=== PATIENT | male | born 1945 | race Caucasian/White ===

== ENCOUNTER 2019-06-27 12:16 | Emergency (ER) | payer MEDICARE ==
[~2019-06-27] VITALS: Ht 165 cm; Wt 72.0 kg
[2019-06-27] MEDS ORDERED: ONDANSETRON 4 MG/2 ML (SDV) Z0FRAN IVP ONE (12:45)
[2019-06-27] MEDS ORDERED: NS IV 1000 ML 1,000 ML IV SCH (12:45)
--- NOTE | 2019-06-27 12:53 | ED Abdominal Pain ---
General Chief Complaint: Abdominal/GI Problems Stated Complaint: VOMITING Source of Information: Patient History of Present Illness Date Seen by Provider: Jun 27, 2019 Time Seen by Provider: 12:40 Initial Comments Patient is a 74-year-old male presents with intermittent epigastric pain with nausea and vomiting for the past oriented hours. Reports vomiting throughout last evening. No chest pain, shortness of breath. No flank pain, no fever chills or sweats. Reports chronic constipation. Last bowel movement was 5 days ago. Previous appendectomy. Timing/Duration: 4-5 Days Severity/Quality: Moderate Location: Epigastric Radiation: No Radiation Activities at Onset: None Allergies and Home Medications Allergies Coded Allergies: No Known Drug Allergies (Unverified , 05/21/11) Patient Home Medication List Home Medication List Reviewed: Yes Review of Systems Review of Systems Constitutional: see HPI EENTM: See HPI Respiratory: See HPI Cardiovascular: See HPI Gastrointestinal: See HPI Genitourinary: See HPI Musculoskeletal: see HPI Skin: see HPI Psychiatric/Neurological: See HPI Endocrine: See HPI Hematologic/Lymphatic: See HPI Past Angqhzd-Wzaqam-Ompgow Hx Past Med/Social Hx: Reviewed Nursing Past Med/Soc Hx Patient Social History Alcohol Use: Denies Use Recreational Drug Use: No Smoking Status: Never a Smoker 2nd Hand Smoke Exposure: No Recent Hopitalizations: No Physical Abuse: No Sexual Abuse: No Mistreated: No Fear: No Seasonal Allergies Seasonal Allergies: No Past Medical History Surgeries: Yes (lymphectomy; R testicle removal ) Appendectomy, Testicular Respiratory: No Cardiac: Yes (aortic aneurysm ) Aneurysm, Hypertension Neurological: Yes TIA Genitourinary: Yes Kidney Stones Gastrointestinal: Yes (hyperbilirubinema) Gastroesophageal Reflux, Brown's Esophagus, Hiatal Hernia, Irritable Bowel Musculoskeletal: Yes (spinal stenosis ) Endocrine: Yes Hypothyroidsim Cancer: Yes Testicular What Type of Treatment Did You: Radiation, Surgical Intervention Psychosocial: Yes Depression Integumentary: No Physical Exam Vital Signs Vital Signs - First Documented 06/27/19 12:25 Temp 36.8 Pulse 70 Resp 18 B/P (MAP) 155/89 (111) Pulse Ox 94 Capillary Refill : Height/Weight/BMI Height: '" Weight: lbs. oz. kg; BMI Method: General Appearance: WD/WN, no apparent distress HEENT: PERRL/EOMI, normal ENT inspection, TMs normal Neck: non-tender, supple Respiratory: chest non-tender, lungs clear Cardiovascular: normal peripheral pulses, regular rate, rhythm Gastrointestinal: soft Extremities: normal range of motion, normal inspection, no pedal edema Back: normal inspection Neurologic/Psychiatric: early childhood coordinator II-XII nml as tested, no motor/sensory deficits, normal mood/affect, oriented x 3 Progress/Results/Core Measures Results/Orders Lab Results Laboratory Tests Test 06/27/19 12:50 06/27/19 14:10 Range/Units White Blood Count 9.2 4.3-11.0 10^3/uL Red Blood Count 4.87 4.35-5.85 10^6/uL Hemoglobin 15.1 13.3-17.7 G/DL Hematocrit 45 40-54 % Mean Corpuscular Volume 92 80-99 FL Mean Corpuscular Hemoglobin 31 25-34 PG Mean Corpuscular Hemoglobin Concent 34 32-36 G/DL Red Cell Distribution Width 13.1 10.0-14.5 % Platelet Count 155 130-400 10^3/uL Mean Platelet Volume 10.3 7.4-10.4 FL Neutrophils (%) (Auto) 89 H 42-75 % Lymphocytes (%) (Auto) 4 L 12-44 % Monocytes (%) (Auto) 7 0-12 % Eosinophils (%) (Auto) 0 0-10 % Basophils (%) (Auto) 0 0-10 % Neutrophils # (Auto) 8.2 H 1.8-7.8 X 10^3 Lymphocytes # (Auto) 0.3 L 1.0-4.0 X 10^3 Monocytes # (Auto) 0.7 0.0-1.0 X 10^3 Eosinophils # (Auto) 0.0 0.0-0.3 10^3/uL Basophils # (Auto) 0.0 0.0-0.1 10^3/uL Neutrophils % (Manual) 85 % Lymphocytes % (Manual) 6 % Monocytes % (Manual) 5 % Eosinophils % (Manual) 0 % Basophils % (Manual) 0 % Band Neutrophils 4 % Blood Morphology Comment NORMAL Sodium Level 138 135-145 MMOL/L Potassium Level 4.2 3.6-5.0 MMOL/L Chloride Level 99 98-107 MMOL/L Carbon Dioxide Level 28 21-32 MMOL/L Anion Gap 11 5-14 MMOL/L Blood Urea Nitrogen 29 H 7-18 MG/DL Creatinine 1.40 H 0.60-1.30 MG/DL Estimat Glomerular Filtration Rate 50 BUN/Creatinine Ratio 21 Glucose Level 139 H 70-105 MG/DL Calcium Level 10.3 H 8.5-10.1 MG/DL Corrected Calcium 8.5-10.1 MG/DL Total Bilirubin 3.2 H 0.1-1.0 MG/DL Aspartate Amino Transf (AST/SGOT) 26 5-34 U/L Alanine Aminotransferase (ALT/SGPT) 20 0-55 U/L Alkaline Phosphatase 53 40-136 U/L Troponin I < 0.30 <0.30 NG/ML Total Protein 7.2 6.4-8.2 GM/DL Albumin 4.6 H 3.2-4.5 GM/DL Lipase 23 8-78 U/L Urine Color YELLOW Urine Clarity CLEAR Urine pH 6.0 5-9 Urine Specific Melber 1.020 1.016-1.022 Urine Protein TRACE NEGATIVE Urine Glucose (UA) NEGATIVE NEGATIVE Urine Ketones NEGATIVE NEGATIVE Urine Nitrite NEGATIVE NEGATIVE Urine Bilirubin NEGATIVE NEGATIVE Urine Urobilinogen 0.2 NORMAL MG/DL Urine Leukocyte Esterase NEGATIVE NEGATIVE Urine RBC (Auto) NEGATIVE NEGATIVE Urine RBC NONE /HPF Urine WBC RARE /HPF Urine Squamous Epithelial Cells RARE /HPF Urine Crystals PRESENT H /LPF Urine Calcium Oxalate Crystals FEW H /LPF Urine Bacteria NONE /HPF Urine Casts NONE /LPF Urine Mucus SMALL H /LPF Urine Culture Indicated NO My Orders Orders - DIRK CA DO Cbc With Automated Diff (06/27/19 12:36) Comprehensive Metabolic Panel (06/27/19 12:36) Lipase (06/27/19 12:36) Ua Culture If Indicated (06/27/19 12:36) Ns Iv 1000 Ml (Sodium Chloride 0.9%) (06/27/19 12:45) Ondansetron Injection (Zofran Injectio (06/27/19 12:45) Ct Abdomen/Pelvis W (06/27/19 12:36) Troponin I Fs (06/27/19 12:36) Ekg Tracing (06/27/19 12:36) Manual Differential (06/27/19 12:50) Iohexol Injection (Omnipaque 350 Mg/Ml 1 (06/27/19 14:00) Received Contrast (Hold Metformin- Contr (06/27/19 14:00) Sodium Chloride Flush (Catheter Flush Sy (06/27/19 14:00) Ns (Ivpb) (Sodium Chloride 0.9% Ivpb Bag (06/27/19 14:00) Fentanyl Injection (Sublimaze Injection (06/27/19 15:00) Ng Tube Insert & Assessment (06/27/19 14:48) Medications Given in ED Current Medications Medications Dose Ordered Sig/Triny Route Start Time Stop Time Status Last Admin Dose Admin Iohexol 100 ml ONCE ONCE IV 06/27/19 14:00 06/27/19 14:01 DC 06/27/19 14:12 100 ML Ondansetron HCl 4 mg ONCE ONCE IVP 06/27/19 12:45 06/27/19 12:46 DC 06/27/19 12:59 4 MG Sodium Chloride 10 ml NEEDED PRN IV 06/27/19 14:00 06/27/19 14:12 10 ML Sodium Chloride 100 ml ONCE ONCE IV 06/27/19 14:00 06/27/19 14:01 DC 06/27/19 14:12 80 ML Vital Signs/I&O 06/27/19 12:25 Temp 36.8 Pulse 70 Resp 18 B/P (MAP) 155/89 (111) Pulse Ox 94 Departure Communication (Admissions) No vomiting while in the emergency department. Abdomen soft, all distention, nontender. CT abdomen and pelvis reveals partial small bowel obstruction with transition zone in right lower quadrant. NG tube placed and connected to wall suction Patient requests transfer to [facility]. Patient accepted to [facility] in [place] by Dr. Agnes ramírez. Impression Primary Impression: Small bowel obstruction Disposition: XFER SHT-TRM HOSP Condition: Stable Admissions Time/Decision to Admit Time: 15:02 Transfer Method of Transfer: EMS Departure-Patient Inst. Referrals: LATASHA WOODALL (PCP) Primary Care Physician [facility] (Family) Primary Care Physician DIRK CA DO Jun 27, 2019 12:53
[2019-06-27 13:05] LABS: HEMATOCRIT 45 % (40-54); HEMOGLOBIN 15.1 G/DL (13.3-17.7); MEAN CORPUSCULAR HEMOGLOBIN 31 PG (25-34); MEAN CORPUSCULAR HGB CONC 34 G/DL (32-36); MEAN CORPUSCULAR VOLUME 92 FL (80-99); MEAN PLATELET VOLUME 10.3 FL (7.4-10.4); PLATELET COUNT 155 10^3/uL (130-400); RED CELL DISTRIBUTION WIDTH 13.1 % (10.0-14.5); WHITE BLOOD COUNT 9.2 10^3/uL (4.3-11.0)
[2019-06-27 13:06] LABS: BASOPHILS % (AUTO) 0 % (0-10); EOSINOPHILS % (AUTO) 0 % (0-10); LYMPHOCYTES # (AUTO) 0.3 X 10^3 (1.0-4.0); LYMPHOCYTES % (AUTO) 4 % (12-44); MONOCYTES # (AUTO) 0.7 X 10^3 (0.0-1.0); MONOCYTES % (AUTO) 7 % (0-12); NEUTROPHILS # (AUTO) 8.2 X 10^3 (1.8-7.8); NEUTROPHILS % (AUTO) 89 % (42-75)
[2019-06-27 13:20] LABS: ALANINE AMINOTRANSFERASE 20 U/L (0-55); ALBUMIN 4.6 GM/DL (3.2-4.5); ALKALINE PHOSPHATASE 53 U/L (40-136); BILIRUBIN,TOTAL 3.2 MG/DL (0.1-1.0); BUN/CREATININE RATIO 21; CALCIUM 10.3 MG/DL (8.5-10.1); CARBON DIOXIDE 28 MMOL/L (21-32); CHLORIDE 99 MMOL/L (98-107); GFR ESTIMATED 50; GLUCOSE 139 MG/DL (70-105); POTASSIUM 4.2 MMOL/L (3.6-5.0); SODIUM 138 MMOL/L (135-145); TOTAL PROTEIN 7.2 GM/DL (6.4-8.2)
[2019-06-27 13:21] LABS: LIPASE 23 U/L (8-78)
[2019-06-27 13:42] LABS: BAND NEUTROPHILS 4 %; BASOPHILS % (MANUAL) 0 %; EOSINOPHILS % (MANUAL) 0 %; LYMPHOCYTES % (MANUAL) 6 %; MONOCYTES % (MANUAL) 5 %; NEUTROPHILS % (MANUAL) 85 %; RBC MORPH NORMAL
[2019-06-27] MEDS ORDERED: IOHEXOL 350 MG/ML 100 ML (OMNIPAQUE 350) VIAL IV ONE (14:00)
[2019-06-27] MEDS ORDERED: HOLD METFORMIN - RECEIVED CONTRAST 20 ML VIAL IV SCH (14:00)
[2019-06-27] MEDS ORDERED: CATHETER FLUSH 10 ML SYR IV PRN (14:00)
[2019-06-27] MEDS ORDERED: NS 100 ML (IVPB) BAG IV ONE (14:00)
[2019-06-27 14:22] LABS: BILIRUBIN,URINE NEGATIVE (NEGATIVE); CALCIUM OXALATE CRYSTALS,UR FEW /LPF; CLARITY,URINE CLEAR; COLOR,URINE YELLOW; GLUCOSE, URINE (UA) NEGATIVE (NEGATIVE); KETONES,URINE NEGATIVE (NEGATIVE); LEUKOCYTE ESTERASE ,URINE NEGATIVE (NEGATIVE); NITRITE,URINE NEGATIVE (NEGATIVE); PROTEIN,URINE TRACE (NEGATIVE); SQUAMOUS EPITHELIAL CELL,UR RARE /HPF; WBC,URINE RARE /HPF
--- NOTE | 2019-06-27 14:44 | Diagnostic Imaging Report ---
PROCEDURE: CT abdomen and pelvis with contrast. TECHNIQUE: Multiple contiguous axial images were obtained through the abdomen and pelvis after administration of intravenous contrast. Auto Exposure Controls were utilized during the CT exam to meet ALARA standards for radiation dose reduction. INDICATION: Vomiting after oral surgery. Abdominal pain. COMPARISON: None. FINDINGS: The heart is enlarged bibasilar opacities are present. A large hiatal hernia is seen. Distended fluid-filled loops of small bowel are seen throughout the abdomen. There is also distention of the stomach and distal esophagus with ingested contents. A transition point is visualized in the right lower quadrant (image 49 series 2). Trace free fluid is seen in the abdomen. No evidence of free air. Multiple nonobstructing renal calculi are seen bilaterally. Simple cortical cysts are seen bilaterally. No evidence of hydronephrosis. The bladder is moderately distended. There is generalized pancreatic atrophy. No pancreatic masses are seen. The liver, spleen, and adrenal glands have a normal appearance. There is no pathologically enlarged mesenteric or retroperitoneal adenopathy. Marked degenerative changes are seen in the lumbar spine. No acute fracture or dislocation is present. There is no free air, loculated collection, or adenopathy in the pelvis. IMPRESSION: 1. Findings consistent with small bowel obstruction with a transition point in the right lower quadrant. There is trace free fluid in the abdomen and pelvis without evidence of free air. 2. There is distention of the stomach and distal esophagus with ingested contents, concerning for aspiration risk. 3. Bilateral nonobstructing renal calculi. No evidence of hydronephrosis. Findings were discussed with Dr. Tej Barakat at 2:45 PM on 06/27/[address] Soren Smith. Dictated by: Dictated on workstation # [id number]
[2019-06-27] MEDS ORDERED: LIDOCAINE UROJET 2% GEL 10 ML PKG ONE (14:58)
[2019-06-27] MEDS ORDERED: fentaNYL INJECTION 100 MCG/2 ML AMP IVP ONE (15:00)
[2019-06-27] MEDS ORDERED: LIDOCAINE UROJET 2% GEL 10 ML PKG TOP ONE (15:00)
--- NOTE | 2019-06-27 15:33 | NUR ---
face sheet faxed to [facility]
[2019-06-27 16:36] VITALS: BP 136/82
--- NOTE | 2019-06-27 16:48 | NUR ---
Called dispatch to page out transfer at this time.
--- NOTE | 2019-06-27 16:59 | NUR ---
Notified by EMS that transfer will be delayed to the other truck being on a call. Will call back with ETA once they kow when they can come.
--- NOTE | 2019-06-27 18:39 | NUR ---
Patient transferred at this time via [facility] at this time to [facility] room 502. [facility] transfer line notified of time of departure.
--- OUTSIDE RECORDS SUMMARY | 2019-07-20 15:48 | XMS REPORT | Continuity of Care Document ---
Author Organization Unknown POS Address Unknown SP Phone Unavailable SP Allergies Active Description Code Type Severity POS Reaction Onset Reported/Identified POS to Patient Clinical Status POS Yes No Known Drug Allergies [id number] Drug SP Unknown N/A 05/21/2011 SP SP Medications There is no data. 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, SINGLE EPISOD SP 06/30/2019 DIRK CA DO Ot I10 SP (PRIMARY) [facility] SP [facility] K21.9 SPESOPHAGEAL REFLUX DISEASE WITHOUT SP 06/30/2019 [facility] K56.600 SP INTESTINAL OBSTRUCTION, UNSPECIF SP 06/30/2019 [facility] K58.9 SP BOWEL SYNDROME WITHOUT DIARRHE SP 06/30/2019 [facility] R10.13 SP PAIN SP 06/30/2019 [facility] Z85.47 SP HISTORY OF MALIGNANT NEOPLASM O SP 06/30/2019 [facility] Ot Z86.73 PRSNL SPHX OF TIA (TIA), AND CEREB INFRC W SP 06/30/2019 [facility] Z87.442 SP HISTORY OF URINARY CALCULI SP 06/30/2019 [facility] Z90.49 SP ABSENCE OF OTHER SPECIFIED PART SP Procedures There is no data. Results Test Result Range POS CBC - 04/30/19 14:14 POS WHITE BLOOD CELL COUNT 4.2 Thousand/uL 3 .8-10.8 SP RED BLOOD CELL COUNT 4.40 Million/uL 4.2 0-5.80 SP HEMOGLOBIN 13.2 g/dL 13.2-17.1 SP HEMATOCRIT 40.2 % 38.5-50.0 SP MCV 91.4 fL 80.0-100.0 SP MCH 30.0 pg 27.0-33.0 SP MCHC 32.8 g/dL 32.0-36.0 SP RDW 13.0 % 11.0-15.0 SP PLATELET COUNT 133 Thousand/uL 140-400 SP MPV 11.4 fL 7.5-12.5 SP ABSOLUTE NEUTROPHILS 2835 cells/uL 1500- 7800 SP ABSOLUTE LYMPHOCYTES 907 cells/uL 850-39 00 SP ABSOLUTE MONOCYTES 370 cells/uL 200-950 SP ABSOLUTE EOSINOPHILS 59 cells/uL 15-500 SP ABSOLUTE BASOPHILS 29 cells/uL 0-200 SP NEUTROPHILS 67.5 % NRG SP LYMPHOCYTES 21.6 % NRG SP MONOCYTES 8.8 % NRG SP EOSINOPHILS 1.4 % NRG SP BASOPHILS 0.7 % NRG SP VITAMIN D, 25-H - 04/30/19 14:14 POS VITAMIN D,25-OH,TOTAL,IA 46 ng/mL 30-10 0 SP TSH w/ FREE T4 - 05/01/19 11:04 POS TSH 2.61 mIU/L 0.40-4.50 SP T4, FREE 1.1 ng/dL 0.8-1.8 SP CMP - 06/26/19 15:31 POS GLUCOSE 99 mg/dL 65-99 SP UREA NITROGEN (BUN) 27 mg/dL 7-25 SP CREATININE 1.24 mg/dL 0.70-1.18 SP eGFR NON-AFR. [facility] 58 mL/min/1.73m2 > OR=60 SP eGFR 67 mL/min/1.73m2 > OR=60 SP BUN/CREATININE RATIO 22 (calc) 6-22 SP SODIUM 139 mmol/L 135-146 SP POTASSIUM 4.3 mmol/L 3.5-5.3 SP CHLORIDE 101 mmol/L 98-110 SP CARBON DIOXIDE 27 mmol/L 20-32 SP CALCIUM 10.0 mg/dL 8.6-10.3 SP PROTEIN, TOTAL 6.5 g/dL 6.1-8.1 SP ALBUMIN 4.3 g/dL 3.6-5.1 SP GLOBULIN 2.2 g/dL (calc) 1.9-3.7 SP ALBUMIN/GLOBULIN RATIO 2.0 (calc) 1.0-2. 5 SP BILIRUBIN, TOTAL 3.0 mg/dL 0.2-1.2 SP ALKALINE PHOSPHATASE 49 U/L 40-115 SP AST 20 U/L 10-35 SP ALT 18 U/L 9-46 SP CBC - 06/26/19 15:31 POS WHITE BLOOD CELL COUNT 6.5 Thousand/uL 3 .8-10.8 SP RED BLOOD CELL COUNT 4.53 Million/uL 4.2 0-5.80 SP HEMOGLOBIN 14.0 g/dL 13.2-17.1 SP HEMATOCRIT 41.6 % 38.5-50.0 SP MCV 91.8 fL 80.0-100.0 SP MCH 30.9 pg 27.0-33.0 SP MCHC 33.7 g/dL 32.0-36.0 SP RDW 12.9 % 11.0-15.0 SP PLATELET COUNT 156 Thousand/uL 140-400 SP MPV 10.6 fL 7.5-12.5 SP ABSOLUTE NEUTROPHILS 4966 cells/uL 1500- 7800 SP ABSOLUTE LYMPHOCYTES 897 cells/uL 850-39 00 SP ABSOLUTE MONOCYTES 624 cells/uL 200-950 SP ABSOLUTE EOSINOPHILS 0 cells/uL 15-500 SP ABSOLUTE BASOPHILS 13 cells/uL 0-200 SP NEUTROPHILS 76.4 % NRG SP LYMPHOCYTES 13.8 % NRG SP MONOCYTES 9.6 % NRG SP EOSINOPHILS 0.0 % NRG SP BASOPHILS 0.2 % NRG SP LIPASE - 06/26/19 15:31 POS LIPASE 19 U/L 7-60 SP Complete blood count (CBC) with automate d white blood cell (WBC) differential - POS 12:50 Blood leukocytes automated count (number/volume) 9.2 10*3/uL POS 4.3-11.0 SP Blood erythrocytes automated count (number/volume) 4.87 10*6/uL SP 4.35-5.85 SP Venous blood hemoglobin measurement (mass/volume) 15.1 g/dL SP17.7 Blood hematocrit (volume fraction) 45 % 40-54 SP Automated erythrocyte mean corpuscular volume 92 [ foz_us] SP99 Automated erythrocyte mean corpuscular h emoglobin (mass per erythrocyte) SP 31 pg 25-34 SP Automated erythrocyte mean corpuscular h emoglobin concentration measurement SP 34 g/dL 32-36 SP Automated erythrocyte distribution width ratio 13. 1 % 10.0- SP Automated blood platelet count (count/volume) 155 10*3/uL SP400 Automated blood platelet mean volume measurement 10.3 [foz_us] SP 7.4-10.4 SP Automated blood neutrophils/100 leukocytes 89 % 42-75 SP Automated blood lymphocytes/100 leukocytes 4 % 12-44 SP Blood monocytes/100 leukocytes 7 % 0-12 SP Automated blood eosinophils/100 leukocytes 0 % 0-10 SP Automated blood basophils/100 leukocytes 0 % 0-10 SP Blood neutrophils automated count (number/volume) 8.2 10*3 SP7.8 Blood lymphocytes automated count (number/volume) 0.3 10*3 SP4.0 Blood monocytes automated count (number/volume) 0. 7 10*3 SP1.0 Automated eosinophil count 0.0 10*3/uL 0 .0-0.3 SP Automated blood basophil count (count/volume) 0.0 10*3/uL SP0.1 Comprehensive metabolic panel - 06/27/19 12:50 POS Serum or plasma sodium measurement (moles/volume) 138 mmol/L SP 135-145 SP Serum or plasma potassium measurement (moles/volume) 4.2 mmol/L SP 3.6-5.0 SP Serum or plasma chloride measurement (moles/volume) 99 mmol/L SP 98-107 SP Carbon dioxide 28 mmol/L 21-32 SP Serum or plasma anion gap determination (moles/volume) 11 mmol/L SP 5-14 SP Serum or plasma urea nitrogen measurement (mass/volume ) 29 mg/dL SP 7-18 SP Serum or plasma creatinine measurement (mass/volume) 1.40 mg/dL SP 0.60-1.30 SP Serum or plasma urea nitrogen/creatinine mass ratio 21 NRG SP Serum or plasma creatinine measurement w ith calculation of estimated glomerular SP rate 50 NRG SP Serum or plasma glucose measurement (mass/volume) 139 mg/dL SP105 Serum or plasma calcium measurement (mass/volume) 10.3 mg/dL SP 8.5-10.1 SP Serum or plasma total bilirubin measurement (mass/volu me) 3.2 mg/dL SP 0.1-1.0 SP Serum or plasma alkaline phosphatase beth surement (enzymatic activity/volume) SP 53 U/L 40-136 SP Serum or plasma aspartate aminotransfera se measurement (enzymatic SP 26 U/L 5-34 SP Serum or plasma alanine aminotransferase measurement (enzymatic activity/volume) SP 20 U/L 0-55 SP Serum or plasma protein measurement (mass/volume) 7.2 g/dL SP8.2 Serum or plasma albumin measurement (mass/volume) 4.6 g/dL SP4.5 TROPONIN I FS - 06/27/19 12:50 POS TROPONIN I FS < 0.30 <0.30 SP Lipase - 06/27/19 12:50 POS Lipase 23 U/L 8-78 SP Manual absolute plasma cell count - 06/09 05/28 12:50 POS Blood monocytes/100 leukocytes 5 % NRG SP Manual blood segmented neutrophils/100 leukocytes 85 % NRG SP Blood band neutrophils/100 leukocytes 4 % NRG SP Manual blood lymphocytes/100 leukocytes 6 % NRG SP Manual eosinophils/100 leukocytes in nose 0 % NRG SP Manual blood basophils/100 leukocytes 0 % NRG SP Blood erythrocyte morphology finding identification NORMAL SP Complete urinalysis with reflex to cultu re - 06/27/19 14:10 POS Urine color determination YELLOW NRG SP Urine clarity determination CLEAR NR G SP Urine pH measurement by test strip 6.0 5-9 SP Specific gravity of urine by test strip 1.020 1.016-1.022 SP Urine protein assay by test strip, semi-quantitative TRACE SP Urine glucose detection by automated test strip NE GATIVE SP Erythrocytes detection in urine sediment by light micr oscopy NEGATIVE SP NEGATIVE SP Urine ketones detection by automated test strip NE GATIVE SP Urine nitrite detection by test strip NEGATIVE NEGATIVE SP Urine total bilirubin detection by test strip NEGA TIVE SP Urine urobilinogen measurement by automated test strip (mass/volume) SP mg/dL NORMAL SP Urine leukocyte esterase detection by dipstick NEG ATIVE SP Automated urine sediment erythrocyte cou nt by microscopy (number/high power SP NONE NRG SP Automated urine sediment leukocyte count by microscopy (number/high power field) SP RARE NRG SP Bacteria detection in urine sediment by light microsco py NONE SP NRG SP Squamous epithelial cells detection in u rine sediment by light microscopy SP RARE NRG SP Crystals detection in urine sediment by light microsco py PRESENT SP NRG SP Casts detection in urine sediment by light microscopy NONE SP Mucus detection in urine sediment by light microscopy SMALL SP NRG SP Complete urinalysis with reflex to culture NO NRG SP Calcium oxalate crystals detection in ur ine sediment by light microscopy SP FEW NRG SP Encounters ACCT No. Visit Date/Time Discharge Status POS Pt. Type Provider Facility Loc./Un it POS Complaint POS [id number] 06/27/2019 10:40:00 06/27/2019 23:59: 59 CLS SP Outpatient [facility] SP SP [id number] 06/26/2019 14:40:00 Document SPRegistration SP [id number] 05/01/2019 11:00:00 Document SPRegistration SP [id number] 04/30/2019 13:00:00 Document SPRegistration SP [id number] 06/27/2019 12:18:00 18:37:00 SP DIS Outpatient CA DIRK HDZ [facility] ER FS VOMITING SP
== END 2019-06-27 18:37 | disposition short-term general hospital (02) ==
LOC: EDUNIT# 12:16 → ER FS 12:18
DX: K56.600 Partial intestinal obstruction, unspecified as to cause (principal); I10 Essential (primary) hypertension; K21.9 Gastro-esophageal reflux disease without esophagitis; K58.9 Irritable bowel syndrome, unspecified; E03.9 Hypothyroidism, unspecified; F32.9 Major depressive disorder, single episode, unspecified; Z85.47 Personal history of malignant neoplasm of testis; Z90.49 Acquired absence of other specified parts of digestive tract; Z86.73 Personal history of transient ischemic attack (TIA), and cerebral infarction without residual deficits; Z87.442 Personal history of urinary calculi
CPT/HCPCS: 36415; 74177; 80053; 81000; 83690; 84484; 85007; 85027; 93005; 96361; 96374; 96375

== ENCOUNTER 2019-07-26 09:57 | Emergency (ER) | payer MEDICARE ==
[~2019-07-26] VITALS: Ht 167.7 cm; Wt 75.0 kg
[2019-07-26 10:33] LABS: CLARITY,URINE CLOUDY; COLOR,URINE YELLOW
[2019-07-26 10:34] LABS: BACTERIA,URINE LARGE /HPF; BILIRUBIN,URINE NEGATIVE (NEGATIVE); GLUCOSE, URINE (UA) NEGATIVE (NEGATIVE); KETONES,URINE NEGATIVE (NEGATIVE); LEUKOCYTE ESTERASE ,URINE 3+ (NEGATIVE); NITRITE,URINE POSITIVE (NEGATIVE); PH,URINE 8.5 (5-9); PROTEIN,URINE 1+ (NEGATIVE); RBC,URINE 50-100 /HPF; WBC,URINE >100 /HPF
[2019-07-26] MEDS ORDERED: LEVOFLOXACIN 750 MG TAB (LEVAQUIN) PO ONE (10:45)
[2019-07-26] MEDS ORDERED: ACETAMINOPHEN 500 MG TAB (TYLENOL) PO ONE (10:45)
[2019-07-26] MEDS ORDERED: LEVOFLOXACIN 500 MG TAB (LEVAQUIN) ONE (10:57)
--- NOTE | 2019-07-26 10:58 | ED General ---
General Chief Complaint: - Urinary Stated Complaint: PT CANT URINATE History of Present Illness Date Seen by Provider: Jul 26, 2019 Time Seen by Provider: 10:00 Initial Comments The patient is a 74-year-old male with a history of hypertension, hyperlipidemia and prostate hyperplasia on Flomax. He presents with concern for acute onset of dysuria over the last 1 day. No associated abdominal pain, flank pain, groin pain, perineal pain, rectal pain. No associated fevers, nausea or vomiting or other systemic symptoms. Patient was in the hospital a couple of weeks ago for a bowel obstruction which was managed conservatively without surgery and resolved without problem. Since then he is generally been feeling back to baseline until yesterday when he noticed the dysuria. Allergies and Home Medications Allergies Coded Allergies: No Known Drug Allergies (Unverified , 05/21/11) Patient Home Medication List Home Medication List Reviewed: Yes Review of Systems Review of Systems Constitutional: see HPI All Other Systems Reviewed Negative Unless Noted: Yes (Negative excepted noted.) Past Ittvrdd-Oiohuh-Vlgmts Hx Past Med/Social Hx: Reviewed Nursing Past Med/Soc Hx Patient Social History 2nd Hand Smoke Exposure: No Recent Hopitalizations: No Seasonal Allergies Seasonal Allergies: No Past Medical History Surgeries: Yes (lymphectomy; R testicle removal ) Appendectomy, Testicular Respiratory: No Cardiac: Yes (aortic aneurysm ) Aneurysm, Hypertension Neurological: Yes TIA Genitourinary: Yes Kidney Stones Gastrointestinal: Yes (hyperbilirubinema) Gastroesophageal Reflux, Brown's Esophagus, Hiatal Hernia, Irritable Bowel Musculoskeletal: Yes (spinal stenosis ) Endocrine: Yes Hypothyroidsim Cancer: Yes Testicular What Type of Treatment Did You: Radiation, Surgical Intervention Psychosocial: Yes Depression Integumentary: No Family Medical History Reviewed Nursing Family Hx Physical Exam Vital Signs Capillary Refill : Height, Weight, BMI Height: '" Weight: lbs. oz. kg; 26.00 BMI Method: General Appearance: No Apparent Distress Comments This is an elderly male appearing nontoxic and in no acute distress. Head is normocephalic and atraumatic. Neck is supple and nontender. Oropharynx is moist. Lungs are clear to auscultation in all stations. There is normal S1 and S2 without rubs or gallops and capillary refill is appropriate, less than 2 seconds globally. Abdomen is soft, nontender and nondistended. Skin is warm and dry without cyanosis, clubbing or edema. Psychiatrically, the patient in the streets appropriate mood and affect and is alert. Genitourinary examination is unremarkable for any erythema, warmth, swelling, tenderness or lesions. Progress/Results/Core Measures Suspected Sepsis SIRS Temperature: Pulse: Respiratory Rate: Blood Pressure / Mean: Results/Orders Lab Results Laboratory Tests Test 07/26/19 10:15 Range/Units Urine Color YELLOW Urine Clarity CLOUDY Urine pH 8.5 5-9 Urine Specific [place] 1.010 L 1.016-1.022 Urine Protein 1+ H NEGATIVE Urine Glucose (UA) NEGATIVE NEGATIVE Urine Ketones NEGATIVE NEGATIVE Urine Nitrite POSITIVE H NEGATIVE Urine Bilirubin NEGATIVE NEGATIVE Urine Urobilinogen 0.2 < = 1.0 MG/DL Urine Leukocyte Esterase 3+ H NEGATIVE Urine RBC (Auto) 3+ H NEGATIVE Urine RBC 50-100 H /HPF Urine WBC >100 H /HPF Urine Crystals NONE /LPF Urine Bacteria LARGE H /HPF Urine Casts NONE /LPF Urine Mucus MODERATE H /LPF Urine Culture Indicated YES My Orders Orders - CHULA PFEIFFER MD Ua Culture If Indicated (07/26/19 10:17) Urine Culture (07/26/19 10:15) Levofloxacin Tablet (Levaquin Tablet) (07/26/19 10:45) Acetaminophen Tablet (Tylenol Tablet) (07/26/19 10:45) Vital Signs/I&O Capillary Refill : Progress Note : Progress Note Clinical examination very reassuring and vital signs are appropriate. Elderly gentleman in no distress couple of weeks out from a hospitalization presents with urinary tract infection symptoms and does have evidence of urinary tract infection on urine dip here in the emergency department. Microscopy with quite a bit of blood however the patient has no abdominal pain or flank pain and low suspicion for stone. We'll cover with levofloxacin course and have the patient follow-up on Saturday in the primary care office. He understands that if he feels worse instead of better or develops other new symptoms of concern that she should return immediately for reevaluation. All questions are answered. Departure Impression Primary Impression: Acute cystitis without hematuria Disposition: HOME, SELF-CARE Condition: Improved Departure-Patient Inst. Referrals: LATASHA WOODALL (PCP) Primary Care Physician [facility] (Family) Primary Care Physician Patient Instructions: Urinary Tract Infection, Adult (DC) Add. Discharge Instructions: Use the antibiotic as instructed for your urinary infection and take the medicine until it is gone (start your home medicine TOMORROW as you received your dose for today in the ER). You may use Tylenol 500 mg every 6 hours as needed for discomfort. Follow-up on Saturday in the primary care office and return right away if symptoms worsen or if other new symptoms of concern develop. Scripts [levofloxacin 750mg] No Conflict Check 1 TAB PO DAILY for 6 Days, #6 TAB Prov: CHULA PFEIFFER MD 07/26/19 CHULA PFEIFFER MD Jul 26, 2019 10:58 POS
[2019-07-26] MEDS ORDERED: LEVOFLOXACIN 750 MG PO (11:00)
[2019-07-26 11:10] VITALS: BP 155/83
== END 2019-07-26 11:14 | disposition home or self-care (01) ==
LOC: EDUNIT# 09:57 → ER FS 09:58
DX: N30.00 Acute cystitis without hematuria (principal); I10 Essential (primary) hypertension; E78.5 Hyperlipidemia, unspecified; F32.9 Major depressive disorder, single episode, unspecified; K21.9 Gastro-esophageal reflux disease without esophagitis; K58.9 Irritable bowel syndrome, unspecified; E03.9 Hypothyroidism, unspecified; Z85.47 Personal history of malignant neoplasm of testis; Z90.49 Acquired absence of other specified parts of digestive tract; Z86.73 Personal history of transient ischemic attack (TIA), and cerebral infarction without residual deficits; Z87.442 Personal history of urinary calculi
CPT/HCPCS: 81000; 87077; 87088; 87186; 99283

== ENCOUNTER 2019-11-09 16:27 | Emergency (ER) | payer MEDICARE ==
[~2019-11-09] VITALS: Ht 167 cm; Wt 73.2 kg
[~2019-11-09 16:27] MED LIST: LEVOFLOXACIN 750 MG PO
[2019-11-09] MEDS ORDERED: ONDANSETRON 4 MG/2 ML (SDV) Z0FRAN IVP ONE (17:00)
[2019-11-09] MEDS ORDERED: fentaNYL INJECTION 100 MCG/2 ML AMP IVP ONE (17:00)
--- NOTE | 2019-11-09 17:13 | Diagnostic Imaging Report ---
Indication: Abdominal pain with nausea and emesis Supine and upright views of the abdomen are obtained. There is mild left basilar atelectasis and/or pneumonitis. Overall bowel gas pattern is unremarkable though there is moderate amount of stool within the colon. No pathologic adenopathy is identified. There are multiple stones seen within both kidneys. IMPRESSION: Bilateral nephrolithiasis without evidence of acute abdominal or pelvic amount. There is mild left basilar atelectasis and/or pneumonitis. Dictated by: Dictated on workstation # [id number]
[2019-11-09 17:14] LABS: HEMATOCRIT 38 % (40-54); HEMOGLOBIN 12.7 G/DL (13.3-17.7); MEAN CORPUSCULAR HEMOGLOBIN 31 PG (25-34); WHITE BLOOD COUNT 6.8 10^3/uL (4.3-11.0)
[2019-11-09 17:15] LABS: BASOPHILS % (AUTO) 0 % (0-10); EOSINOPHILS % (AUTO) 0 % (0-10); LYMPHOCYTES # (AUTO) 0.8 X 10^3 (1.0-4.0); LYMPHOCYTES % (AUTO) 12 % (12-44); MEAN CORPUSCULAR HGB CONC 33 G/DL (32-36); MEAN CORPUSCULAR VOLUME 91 FL (80-99); MONOCYTES # (AUTO) 0.7 X 10^3 (0.0-1.0); MONOCYTES % (AUTO) 10 % (0-12); NEUTROPHILS # (AUTO) 5.2 X 10^3 (1.8-7.8); NEUTROPHILS % (AUTO) 77 % (42-75); PLATELET COUNT 121 10^3/uL (130-400); RED CELL DISTRIBUTION WIDTH 13.2 % (10.0-14.5)
--- NOTE | 2019-11-09 17:27 | ED GI ---
General Chief Complaint: Abdominal/GI Problems Stated Complaint: STOMACHE PAIN/NAUSEA AND VOMITTING Nursing Triage Note: Started having abdominal pain and vomiting yesterday. States he vomited approximately 10 times. [place] better this morning, but as soon as he ate started vomiting again. Has hx of a bowel obstruction 4 months ago and was in [facility]. Sepsis Screen: No Definite Risk Source of Information: Patient Exam Limitations: No Limitations (TAMMI WILLARD DO) History of Present Illness Date Seen by Provider: Nov 09, 2019 Time Seen by Provider: 17:00 Initial Comments Patient presents with onset of abdominal pain yesterday shortly after having a bowel movement. Pain persisted throughout the day and was pretty severe with associated vomiting about 10 times. He went to bed and this morning woke up feeling a lot better, he drank a protein drink and that's always had all day today. Presents with minimal lower abdominal pain and minimal nausea without vomiting today. Concerned that he may have a bowel blockage as he was admitted to [facility] 3 weeks ago for one week for bowel obstruction. It resolved spontaneously. Denies chest pain, palpitations, shortness of air or wheezing. Denies fever or chills. (TAMMI WILLARD DO) Allergies and Home Medications Allergies Coded Allergies: No Known Drug Allergies (Unverified , 05/21/11) Home Medications Metoclopramide HCl 5 Mg Tablet, 5 MG PO QID PRN for NAUSEA/VOMITING Prescribed by: OG SHOOK on 11/09/191951 [levofloxacin 750mg] , 1 TAB PO DAILY Prescribed by: CHULA PFEIFFER on 07/26/19 1100 Patient Home Medication List Home Medication List Reviewed: Yes (TAMMI WILLARD DO) Review of Systems Review of Systems Constitutional: see HPI; No fever, No malaise, No weakness Respiratory: Denies Cough, Denies Shortness of Air Cardiovascular: Denies Chest Pain, Denies Palpitations Gastrointestinal: Abdominal Pain; Denies Constipated, Denies Diarrhea, Denies Difficulty Swallowing; Nausea, Poor Fluid Intake; Denies Rectal Bleeding; Vomi ting Genitourinary: Denies Discharge, Denies Frequency, Denies Flank Pain, Denies Hematuria Musculoskeletal: No back pain, No joint pain Skin: No change in color, No rash (ROVENSTINE,TAMMI L DO) Past Gjhwnjq-Nqpoix-Kigyfc Hx Patient Social History Alcohol Use: Denies Use Recreational Drug Use: No Smoking Status: Never a Smoker 2nd Hand Smoke Exposure: No Recent Foreign Travel: No Contact w/Someone Who Travel: No Recent Infectious Disease Expo: No Recent Hopitalizations: No Physical Abuse: No Sexual Abuse: No Mistreated: No Fear: No (ROVENSTINE,TAMMI L DO) Seasonal Allergies Seasonal Allergies: No (ROVENSTINE,TAMMI L DO) Past Medical History Surgeries: Yes (lymphectomy; R testicle removal ) Appendectomy, Testicular Respiratory: No Cardiac: Yes (aortic aneurysm ) Aneurysm, Hypertension Neurological: Yes TIA Genitourinary: Yes Kidney Stones Gastrointestinal: Yes (hyperbilirubinema) Gastroesophageal Reflux, Brown's Esophagus, Hiatal Hernia, Irritable Bowel Musculoskeletal: Yes (spinal stenosis ) Endocrine: Yes Hypothyroidsim Cancer: Yes Testicular What Type of Treatment Did You: Radiation, Surgical Intervention Psychosocial: Yes Depression Integumentary: No (ROVENSTINE,TAMMI L DO) Physical Exam Vital Signs Vital Signs - First Documented 11/09/19 11/09/19 16:35 19:55 Temp 37.7 Pulse 64 Resp 18 B/P (MAP) 144/66 (92) Pulse Ox 96 O2 Delivery Room Air (OG SHOOK MD) Vital Signs Capillary Refill : Less Than 3 Seconds (ROVENSTINE,TAMMI L DO) Height/Weight/BMI Height: '" Weight: lbs. oz. kg; 26.00 BMI Method: General Appearance: WD/WN, no apparent distress Respiratory: chest non-tender, lungs clear, normal breath sounds Cardiovascular: regular rate, rhythm, no edema, no JVD Gastrointestinal: soft, no organomegaly, no pulsatile mass; No distended, No guarding, No rebound; tenderness (minimal lower abdominal pain); No hernia, No mass; other (hypoactive BS) Extremities: non-tender, no pedal edema, no calf tenderness Back: normal inspection, no CVA tenderness, no vertebral tenderness Neurologic/Psychiatric: no motor/sensory deficits, normal mood/affect, oriented x 3 Skin: normal color, warm/dry (ROVENSTINE,TAMMI L DO) Progress/Results/Core Measures Results/Orders Lab Results Laboratory Tests Test 11/09/19 17:01 11/09/19 18:00 Range/Units White Blood Count 6.8 4.3-11.0 10^3/uL Red Blood Count 4.16 L 4.35-5.85 10^6/uL Hemoglobin 12.7 L 13.3-17.7 G/DL Hematocrit 38 L 40-54 % Mean Corpuscular Volume 91 80-99 FL Mean Corpuscular Hemoglobin 31 25-34 PG Mean Corpuscular Hemoglobin Concent 33 32-36 G/DL Red Cell Distribution Width 13.2 10.0-14.5 % Platelet Count 121 L 130-400 10^3/uL Mean Platelet Volume 11.0 H 7.4-10.4 FL Neutrophils (%) (Auto) 77 H 42-75 % Lymphocytes (%) (Auto) 12 12-44 % Monocytes (%) (Auto) 10 0-12 % Eosinophils (%) (Auto) 0 0-10 % Basophils (%) (Auto) 0 0-10 % Neutrophils # (Auto) 5.2 1.8-7.8 X 10^3 Lymphocytes # (Auto) 0.8 L 1.0-4.0 X 10^3 Monocytes # (Auto) 0.7 0.0-1.0 X 10^3 Eosinophils # (Auto) 0.0 0.0-0.3 10^3/uL Basophils # (Auto) 0.0 0.0-0.1 10^3/uL Sodium Level 138 135-145 MMOL/L Potassium Level 4.1 3.6-5.0 MMOL/L Chloride Level 100 98-107 MMOL/L Carbon Dioxide Level 25 21-32 MMOL/L Anion Gap 13 5-14 MMOL/L Blood Urea Nitrogen 35 H 7-18 MG/DL Creatinine 2.09 H 0.60-1.30 MG/DL Estimat Glomerular Filtration Rate 31 BUN/Creatinine Ratio 17 Glucose Level 109 H 70-105 MG/DL Calcium Level 9.1 8.5-10.1 MG/DL Corrected Calcium 9.1 8.5-10.1 MG/DL Total Bilirubin 3.0 H 0.1-1.0 MG/DL Aspartate Amino Transf (AST/SGOT) 15 5-34 U/L Alanine Aminotransferase (ALT/SGPT) 15 0-55 U/L Alkaline Phosphatase 53 40-136 U/L Total Protein 6.4 6.4-8.2 GM/DL Albumin 4.0 3.2-4.5 GM/DL Urine Color YELLOW Urine Clarity CLEAR Urine pH 6.0 5-9 Urine Specific [place] 1.020 1.016-1.022 Urine Protein NEGATIVE NEGATIVE Urine Glucose (UA) NEGATIVE NEGATIVE Urine Ketones NEGATIVE NEGATIVE Urine Nitrite NEGATIVE NEGATIVE Urine Bilirubin NEGATIVE NEGATIVE Urine Urobilinogen 0.2 < = 1.0 MG/DL Urine Leukocyte Esterase NEGATIVE NEGATIVE Urine RBC (Auto) NEGATIVE NEGATIVE Urine RBC NONE /HPF Urine WBC 0-2 /HPF Urine Squamous Epithelial Cells NONE /HPF Urine Crystals NONE /LPF Urine Bacteria NEGATIVE /HPF Urine Casts NONE /LPF Urine Mucus NONE /LPF Urine Culture Indicated NO (OG SHOOK MD) Medications Given in ED Current Medications Medications Dose Ordered Sig/Triny Route Start Time Stop Time Status Last Admin Dose Admin Fentanyl Citrate 50 mcg ONCE ONCE IVP 11/09/19 17:00 11/09/19 17:01 DC 11/09/19 17:12 50 MCG Ondansetron HCl 4 mg ONCE ONCE IVP 11/09/19 17:00 11/09/19 17:01 DC 11/09/19 17:12 4 MG (OG SHOOK MD) Vital Signs/I&O 11/09/19 11/09/19 16:35 19:55 Temp 37.7 Pulse 64 67 Resp 18 18 B/P (MAP) 144/66 (92) 159/71 Pulse Ox 96 96 O2 Delivery Room Air (OG SHOOK MD) Blood Pressure Mean: 92 Progress Progress Note : Time: 19:33 Progress Note Patient tolerating po fluids and has been up to the bathroom here in the ED. He reported some abdominal discomfort but has no vomiting after drinking water. Counseled on follow-up liquid diet for the next 24-48 hours. After that he could advance his diet as tolerated. If he has vomiting and increasing pain he should return or seek medical care for further evaluation as he is not showing obstruction currently but he could be developing a small bowel obstruction that is not showing on xray yet. (OG SHOOK MD) Transfer of Care Time: 18:00 Care transferred to: Discussed HPI and pending labs/ xrays at shift change. (TAMMI WILLARD DO) Departure Impression Primary Impression: Abdominal pain Qualified Codes: R10.30 - Lower abdominal pain, unspecified Additional Impressions: Dehydration Acute renal insufficiency Disposition: HOME, SELF-CARE Condition: Stable Departure-Patient Inst. Decision time for Depature: 19:49 (OG SHOOK MD) Referrals: LATASHA WOODALL (PCP) Primary Care Physician [facility] (Family) Primary Care Physician Patient Instructions: Acute Abdomen (Belly Pain), Adult (DC), Dehydration, Adult (DC), Full Liquid Diet, Nausea and Vomiting, Adult (DC) Add. Discharge Instructions: Follow a full liquid diet for 24 to 48 hours. Check with clinic if not improving or if vomiting and having worsening pain then return to ER or seek medical care for further evaluation All discharge instructions reviewed with patient and/or family. Voiced understanding. Scripts Metoclopramide HCl (Metoclopramide HCl) 5 Mg Tablet 5 MG PO QID PRN for NAUSEA/VOMITING for 3 Days, #12 TAB 0 Refills Prov: OG SHOOK MD 11/09/19 TAMMI WILLARD DO Nov 09, 2019 17:27 OG SHOOK MD Nov 09, 2019 19:50
[2019-11-09 17:37] LABS: CALCIUM 9.1 MG/DL (8.5-10.1); CREATININE SERUM 2.09 MG/DL (0.60-1.30); POTASSIUM 4.1 MMOL/L (3.6-5.0); TOTAL PROTEIN 6.4 GM/DL (6.4-8.2)
[2019-11-09] MEDS ORDERED: NS IV 1000 ML 1,000 ML IV STA (17:48)
[2019-11-09 18:12] LABS: CLARITY,URINE CLEAR; COLOR,URINE YELLOW; PROTEIN,URINE NEGATIVE (NEGATIVE)
[2019-11-09 18:13] LABS: BACTERIA,URINE NEGATIVE /HPF; BILIRUBIN,URINE NEGATIVE (NEGATIVE); GLUCOSE, URINE (UA) NEGATIVE (NEGATIVE); KETONES,URINE NEGATIVE (NEGATIVE); LEUKOCYTE ESTERASE ,URINE NEGATIVE (NEGATIVE); NITRITE,URINE NEGATIVE (NEGATIVE); WBC,URINE 0-2 /HPF
[2019-11-09] MEDS ORDERED: METO5TAB2 PO (19:52)
[2019-11-09 19:55] VITALS: BP 159/71
== END 2019-11-09 19:55 | disposition home or self-care (01) ==
LOC: EDUNIT# 16:27 → ER FS 16:29
DX: N28.9 Disorder of kidney and ureter, unspecified (principal); E86.0 Dehydration; I10 Essential (primary) hypertension; E03.9 Hypothyroidism, unspecified; Z86.73 Personal history of transient ischemic attack (TIA), and cerebral infarction without residual deficits; Z85.47 Personal history of malignant neoplasm of testis
CPT/HCPCS: 36415; 74019; 80053; 81000; 85025

== ENCOUNTER 2020-07-17 15:04 | Emergency (ER) | payer MEDICARE ==
[~2020-07-17] VITALS: Ht 165.1 cm; Wt 65.0 kg
[~2020-07-17 15:04] MED LIST changes: +METO5TAB2 PO
[2020-07-17 15:07] VITALS: BP 157/83
--- NOTE | 2020-07-17 15:39 | ED GU-Male ---
General Chief Complaint: - Urinary Stated Complaint: CONFUSION;VOMITING Source: patient Exam Limitations: no limitations History of Present Illness Date Seen by Provider: Jul 17, 2020 Time Seen by Provider: 15:25 Initial Comments Patient is a 75-year-old male who presents to the emergency department today with a chief complaint of generally not feeling well and symptoms of urinary frequency. Patient states his symptoms have started about 2 days ago. He has progressed from going once every couple of hours to once every hour to now once every 15 minutes or so his states. also states that she gave him an amoxicillin tablet last night before bed. Patient states that he has a little bit of suprapubic abdominal discomfort but no actual pain. He has had urinary tract infections in the past. Patient reports that he is uncircumcised and has no problems with his foreskin. Patient denies knowing that he had any fever. He did have one episode of nausea vomiting about 2 days ago but he attributes this to a bunch of sinus congestion that he has had over the last several days. Patient also endorses a little bit of depression over recent election results. Denies any thoughts of self-harm. Denies any other symptoms such as cough, persistent nausea vomiting, persistent diarrhea. Patient has a remote history of testicular cancer, status post orchiectomy at the age of 21. History prostatic hyperplasia and functional urinary incontinence according to the medical record. All other review of systems reviewed and negative except as stated. Timing/Duration: getting worse (2 to 3 days) Severity/Quality: moderate Location: suprapubic Radiation: none Activities at Onset: none Associated Symptoms: denies symptoms Allergies and Home Medications Allergies Coded Allergies: No Known Drug Allergies (Unverified , 05/21/11) Home Medications Levofloxacin 500 Mg Tablet, 500 MG PO DAILY Prescribed by: DUARTE PEREZ on 07/17/20 [id number] Patient Home Medication List Home Medication List Reviewed: Yes Review of Systems Review of Systems Constitutional: malaise EENTM: no symptoms reported Respiratory: no symptoms reported Cardiovascular: no symptoms reported Gastrointestinal: no symptoms reported Genitourinary: frequency Musculoskeletal: no symptoms reported Skin: no symptoms reported Psychiatric/Neurological: Depressed All Other Systemes Reviewed Negative Unless Noted: Yes Past Lgpjmmr-Qxcxiu-Zdwtct Hx Patient Social History 2nd Hand Smoke Exposure: No Recent Hopitalizations: No Seasonal Allergies Seasonal Allergies: No Past Medical History Surgeries: Yes (lymphectomy; R testicle removal ) Appendectomy, Testicular Respiratory: No Cardiac: Yes (aortic aneurysm ) Aneurysm, Hypertension Neurological: Yes TIA Genitourinary: Yes Kidney Stones Gastrointestinal: Yes (hyperbilirubinema) Gastroesophageal Reflux, Brown's Esophagus, Hiatal Hernia, Irritable Bowel Musculoskeletal: Yes (spinal stenosis ) Endocrine: Yes Hypothyroidsim Cancer: Yes Testicular What Type of Treatment Did You: Radiation, Surgical Intervention Psychosocial: Yes Depression Integumentary: No Physical Exam Vital Signs Vital Signs - First Documented 07/17/20 15:07 Temp 37.9 Pulse 109 Resp 14 B/P (MAP) 157/83 (107) Pulse Ox 97 O2 Delivery Room Air Capillary Refill : Height, Weight, BMI Height: '" Weight: lbs. oz. kg; 26.00 BMI Method: General Appearance: WD/WN, no apparent distress HEENT: PERRL/EOMI Neck: full range of motion, supple Cardiovascular: regular rate, rhythm, no murmur, tachycardia Respiratory: lungs clear, normal breath sounds, no respiratory distress, no accessory muscle use Gastrointestinal: normal bowel sounds, non tender, soft Extremities: normal range of motion, normal inspection Neurologic/Psychiatric: no motor/sensory deficits, alert, normal mood/affect, oriented x 3 Skin: normal color, warm/dry Progress/Results/Core Measures Suspected Sepsis SIRS Temperature: Pulse: Respiratory Rate: Blood Pressure / Mean: Results/Orders Lab Results Laboratory Tests Test 07/17/20 15:07 Range/Units Urine Color DARK YELLOW Urine Clarity CLOUDY H Urine pH 6.0 5-9 Urine Specific [place] 1.025 H 1.016-1.022 Urine Protein 1+ H NEGATIVE Urine Glucose (UA) NEGATIVE NEGATIVE Urine Ketones NEGATIVE NEGATIVE Urine Nitrite POSITIVE H NEGATIVE Urine Bilirubin NEGATIVE NEGATIVE Urine Urobilinogen 0.2 < = 1.0 MG/DL Urine Leukocyte Esterase 2+ H NEGATIVE Urine RBC (Auto) 2+ H NEGATIVE Urine RBC 25-50 H /HPF Urine WBC >100 H /HPF Urine Squamous Epithelial Cells NONE /HPF Urine Crystals NONE /LPF Urine Bacteria LARGE H /HPF Urine Casts NONE /LPF Urine Mucus NEGATIVE /LPF Urine Culture Indicated YES Micro Results Microbiology 07/17/20 Urine Culture - Preliminary, Resulted Gram Negative Elvin My Orders Orders - DUARTE PEREZ MD Ua Culture If Indicated (07/17/20 15:34) Urine Culture (07/17/20 15:07) Vital Signs/I&O 07/17/20 15:07 Temp 37.9 Pulse 109 Resp 14 B/P (MAP) 157/83 (107) Pulse Ox 97 O2 Delivery Room Air Capillary Refill : Progress Note : Time: 15:39 Progress Note 75-year-old male presents to the emergency department today with a chief complaint of urinary tract infection. Evaluation today includes a physical exam as well as urinalysis. Patient is otherwise stable without any complaints of associated systemic illness. His temperature was 100.2 on presentation he has a little bit tachycardic but otherwise appears well. Awaiting urinalysis results. 1553 Urinalysis reveals significant urinary tract infection with nitrite positive large bacteria and too numerous to count white blood cells. We will treat the patient with 5 days of Levaquin 500 mg. Patient states that he has a follow-up appointment with the urologist in a few days. Patient is encouraged to keep this appointment. Departure Impression Primary Impression: Urinary tract infection Qualified Codes: N30.01 - Acute cystitis with hematuria Disposition: HOME, SELF-CARE Condition: Stable Departure-Patient Inst. Referrals: LATASHA WOODALL (PCP) Primary Care Physician [facility] (Family) Primary Care Physician Patient Instructions: Urinary Tract Infection, Adult (DC) Add. Discharge Instructions: Drink plenty of fluids while you are taking the antibiotics. Start taking the antibiotics today. I have electronically submitted your prescription to your [facility] pharmacy. Return to the emergency department for high fever, return of nausea vomiting, abdominal pain or any other emergent, concerning symptoms. Please follow-up with your primary care doctor as needed. Scripts Levofloxacin (Levofloxacin) 500 Mg Tablet 500 MG PO DAILY for 5 Days, #5 TAB Prov: DUARTE PEREZ MD 07/17/20 DUARTE PEREZ MD Jul 17, 2020 15:39
[2020-07-17 15:43] LABS: BILIRUBIN,URINE NEGATIVE (NEGATIVE); CLARITY,URINE CLOUDY; COLOR,URINE DARK YELLOW; GLUCOSE, URINE (UA) NEGATIVE (NEGATIVE); KETONES,URINE NEGATIVE (NEGATIVE); LEUKOCYTE ESTERASE ,URINE 2+ (NEGATIVE); NITRITE,URINE POSITIVE (NEGATIVE); PROTEIN,URINE 1+ (NEGATIVE)
[2020-07-17 15:44] LABS: BACTERIA,URINE LARGE /HPF; RBC,URINE 25-50 /HPF; WBC,URINE >100 /HPF
[2020-07-17] MEDS ORDERED: LEVO500T80 PO (15:55)
[2020-07-17] MEDS ORDERED: PARO10TA3 (15:59)
[2020-07-17] MEDS ORDERED: OMEP40CA27 (15:59)
[2020-07-17] MEDS ORDERED: LOVA40TA2 (15:59)
[2020-07-17] MEDS ORDERED: LEVO25TA80 (15:59)
[2020-07-17] MEDS ORDERED: TROS20TA3 (15:59)
[2020-07-17] MEDS ORDERED: tamsulosin (15:59)
--- NOTE | 2020-07-17 15:59 | NUR ---
Reviewed instructions with patient and walked patient to vehicle and discussed diagnosis and treatment plan with his fiance' as he referred to her as . Verbalized understanding of instructions.
== END 2020-07-17 15:59 | disposition home or self-care (01) ==
LOC: EDUNIT# 15:04 → ER FS 15:06
DX: N30.01 Acute cystitis with hematuria (principal); I10 Essential (primary) hypertension; K21.9 Gastro-esophageal reflux disease without esophagitis
CPT/HCPCS: 81000; 87088; 99282

== ENCOUNTER 2020-11-06 12:51 | Emergency (ER) | payer MEDICARE ==
[~2020-11-06] VITALS: Ht 170.1 cm; Wt 72.7 kg
[~2020-11-06 12:51] MED LIST changes: +LEVO25TA80; +LEVO500T80 PO; +LOVA40TA2; +OMEP40CA27; +PARO10TA3; +TROS20TA3; +tamsulosin
[2020-11-06 13:10] LABS: HEMATOCRIT 34 % (40-54); HEMOGLOBIN 11.4 G/DL (13.3-17.7); MEAN CORPUSCULAR HEMOGLOBIN 31 PG (25-34); MEAN CORPUSCULAR HGB CONC 34 G/DL (32-36); MEAN CORPUSCULAR VOLUME 92 FL (80-99); WHITE BLOOD COUNT 8.7 10^3/uL (4.3-11.0)
[2020-11-06 13:11] LABS: BASOPHILS % (AUTO) 0 % (0-10); EOSINOPHILS % (AUTO) 0 % (0-10); LYMPHOCYTES # (AUTO) 0.4 X 10^3 (1.0-4.0); LYMPHOCYTES % (AUTO) 4 % (12-44); MEAN PLATELET VOLUME 11.2 FL (7.4-10.4); MONOCYTES # (AUTO) 0.9 X 10^3 (0.0-1.0); MONOCYTES % (AUTO) 11 % (0-12); NEUTROPHILS # (AUTO) 7.3 X 10^3 (1.8-7.8); NEUTROPHILS % (AUTO) 85 % (42-75); PLATELET COUNT 76 10^3/uL (130-400)
[2020-11-06 13:27] LABS: ALBUMIN 3.4 GM/DL (3.2-4.5); BILIRUBIN,TOTAL 3.2 MG/DL (0.1-1.0); CALCIUM 8.6 MG/DL (8.5-10.1); CREATININE SERUM 5.1 MG/DL (0.60-1.30); POTASSIUM 4.6 MMOL/L (3.6-5.0); TOTAL PROTEIN 5.9 GM/DL (6.4-8.2)
[2020-11-06 13:32] LABS: BACTERIA,URINE MODERATE /HPF; BILIRUBIN,URINE NEGATIVE (NEGATIVE); CLARITY,URINE CLOUDY; COLOR,URINE YELLOW; GLUCOSE, URINE (UA) NEGATIVE (NEGATIVE); KETONES,URINE NEGATIVE (NEGATIVE); LEUKOCYTE ESTERASE ,URINE 2+ (NEGATIVE); NITRITE,URINE NEGATIVE (NEGATIVE); PROTEIN,URINE 1+ (NEGATIVE); WBC,URINE >100 /HPF
[2020-11-06] MEDS ORDERED: ASPIRIN 81 MG CHEW (CHILDREN'S ASA) PO ONE (14:00)
[2020-11-06] MEDS ORDERED: NS IV 1000 ML 1,000 ML IV SCH ×2 (14:00→16:00)
[2020-11-06 14:02] LABS: INR 1.1 (0.8-1.4); PROTHROMBIN TIME PATIENT 14.6 SEC (12.2-14.7)
--- NOTE | 2020-11-06 14:02 | ED General ---
General Chief Complaint: General Problems/Pain Stated Complaint: WEAKNESS POST COVID VACCINE Source of Information: Patient, EMS, Spouse History of Present Illness Date Seen by Provider: Nov 06, 2020 Time Seen by Provider: 12:54 Initial Comments 75-year-old male presenting with EMS from home having increasing weakness since Saturday. He had his first Covid vaccine on Saturday and then had nausea and vomiting with epigastric pain on Saturday afternoon. Since then he has had increasing weakness and difficulty getting around. The states that he has had some increased confusion as well. She states that he does have a history of spinal stenosis and has been doing physical therapy but he has been getting better and having improving strength until the last 3 days. He has not been eating and drinking as well. He has had some vomiting. He denies any chest pa in or shortness of breath. He has not been having any coughing. He denies any fever or chills. Allergies and Home Medications Allergies Coded Allergies: No Known Drug Allergies (Unverified , 05/21/11) Home Medications Levofloxacin 500 Mg Tablet, 500 MG PO DAILY Prescribed by: DUARTE PEREZ on 07/17/20 7030 Patient Home Medication List Home Medication List Reviewed: Yes Review of Systems Review of Systems Constitutional: No chills, No diaphoresis, No fever; malaise, weakness (Generalized) EENTM: no symptoms reported; No epistaxis, No nose congestion Respiratory: No cough, No short of breath Cardiovascular: No chest pain Gastrointestinal: see HPI, abdominal pain (Epigastric abdominal pain with nausea and vomiting on Saturday), nausea, vomiting Genitourinary: No dysuria; hesitancy Musculoskeletal: back pain (Chronic back pain with spinal stenosis) Skin: change in color (chronic jaundice); No rash Psychiatric/Neurological: Denies Headache, Denies Numbness, Denies Paresthesia; Weakness (generalized) Hematologic/Lymphatic: Denies Blood Clots Immunological/Allergic: no symptoms reported Past Nbjaqwl-Gurspz-Kirqre Hx Past Med/Social Hx: Reviewed Nursing Past Med/Soc Hx Patient Social History 2nd Hand Smoke Exposure: No Recent Hopitalizations: No Immunizations Up To Date Tetanus Booster (TDap): More than 5yrs Date of Pneumonia Vaccine: Aug 05, 2017 Seasonal Allergies Seasonal Allergies: No Past Medical History Surgeries: Yes (lymphadenectomy; R testicle removal ) Appendectomy, Testicular Respiratory: No Cardiac: Yes (aortic aneurysm ) Aneurysm, Hypertension Neurological: Yes (? CVA without deficits in [facility]) TIA Genitourinary: Yes (Hx prostatitis and incontinence) Kidney Stones Gastrointestinal: Yes (hyperbilirubinema, reflux esophagitis hx, ) Gastroesophageal Reflux, Brown's Esophagus, Chronic Constipation, Esophagitis, Hiatal Hernia, Irritable Bowel Musculoskeletal: Yes (spinal stenosis ) Endocrine: Yes Hypothyroidsim Cancer: Yes Testicular What Type of Treatment Did You: Radiation, Surgical Intervention Psychosocial: Yes Depression Integumentary: No Blood Disorders: Yes (non specified anemia hx) Physical Exam Vital Signs Vital Signs - First Documented 11/06/20 12:53 Temp 37.4 Pulse 65 Resp 20 B/P (MAP) 116/51 (72) Pulse Ox 98 O2 Delivery Room Air Capillary Refill : Height, Weight, BMI Height: '" Weight: lbs. oz. kg; 23.00 BMI Method: General Appearance: Chronically ill, Mild Distress HEENT: PERRL/EOMI; No Moist Mucous Membranes Neck: Non Tender, Supple Respiratory: Chest Non Tender, Lungs Clear, Normal Breath Sounds, No Accessory Muscle Use, No Respiratory Distress Cardiovascular: Regular Rate, Rhythm, Normal Peripheral Pulses Gastrointestinal: Normal Bowel Sounds, No Pulsatile Mass, Non Tender, Soft Rectal: Deferred Extremity: Normal Capillary Refill, No Pedal Edema Neurologic/Psychiatric: Alert, Oriented x3 (slow to answer questions but oriented x 3), resident services director II-XII Norm as Tested Skin: Warm/Dry, Jaundice Focused Exam Lactate Level 11/06/20 14:45: Lactic Acid Level 1.09 Lactic Acid Level Laboratory Tests Test 11/06/20 14:45 Lactic Acid Level 1.09 MMOL/L (0.50-2.00) Progress/Results/Core Measures Suspected Sepsis SIRS Temperature: Pulse: Respiratory Rate: Laboratory Tests 11/06/20 13:00: White Blood Count 8.7 Blood Pressure / Mean: 11/06/20 14:45: Lactic Acid Level 1.09 Laboratory Tests 11/06/20 13:00: Creatinine 5.10H, INR Comment 1.1, Platelet Count 76L, Total Bilirubin 3.2H Results/Orders Lab Results Laboratory Tests Test 11/06/20 13:00 11/06/20 13:20 11/06/20 14:45 Range/Units White Blood Count 8.7 4.3-11.0 10^3/uL Red Blood Count 3.66 L 4.35-5.85 10^6/uL Hemoglobin 11.4 L 13.3-17.7 G/DL Hematocrit 34 L 40-54 % Mean Corpuscular Volume 92 80-99 FL Mean Corpuscular Hemoglobin 31 25-34 PG Mean Corpuscular Hemoglobin Concent 34 32-36 G/DL Red Cell Distribution Width 13.2 10.0-14.5 % Platelet Count 76 L 130-400 10^3/uL Mean Platelet Volume 11.2 H 7.4-10.4 FL Immature Granulocyte % (Auto) 0 % Neutrophils (%) (Auto) 85 H 42-75 % Lymphocytes (%) (Auto) 4 L 12-44 % Monocytes (%) (Auto) 11 0-12 % Eosinophils (%) (Auto) 0 0-10 % Basophils (%) (Auto) 0 0-10 % Neutrophils # (Auto) 7.3 1.8-7.8 X 10^3 Lymphocytes # (Auto) 0.4 L 1.0-4.0 X 10^3 Monocytes # (Auto) 0.9 0.0-1.0 X 10^3 Eosinophils # (Auto) 0.0 0.0-0.3 10^3/uL Basophils # (Auto) 0.0 0.0-0.1 10^3/uL Immature Granulocyte # (Auto) 0.0 0.0-0.1 10^3/uL Neutrophils % (Manual) 90 % Lymphocytes % (Manual) 1 % Monocytes % (Manual) 9 % Toxic Granulation 3+ Prothrombin Time 14.6 12.2-14.7 SEC INR Comment 1.1 0.8-1.4 Activated Partial Thromboplast Time 29 24-35 SEC Sodium Level 130 L 135-145 MMOL/L Potassium Level 4.6 3.6-5.0 MMOL/L Chloride Level 96 L 98-107 MMOL/L Carbon Dioxide Level 20 L 21-32 MMOL/L Anion Gap 14 5-14 MMOL/L Blood Urea Nitrogen 73 H 7-18 MG/DL Creatinine 5.10 H 0.60-1.30 MG/DL Estimat Glomerular Filtration Rate 11 BUN/Creatinine Ratio 14 Glucose Level 116 H 70-105 MG/DL Calcium Level 8.6 8.5-10.1 MG/DL Corrected Calcium 9.1 8.5-10.1 MG/DL Magnesium Level 2.0 1.6-2.4 MG/DL Total Bilirubin 3.2 H 0.1-1.0 MG/DL Aspartate Amino Transf (AST/SGOT) 170 H 5-34 U/L Alanine Aminotransferase (ALT/SGPT) 65 H 0-55 U/L Alkaline Phosphatase 43 40-136 U/L Troponin I 1.55 *H <0.30 NG/ML Pro-B-Type Natriuretic Peptide 28279.0 H <75.0 PG/ML Total Protein 5.9 L 6.4-8.2 GM/DL Albumin 3.4 3.2-4.5 GM/DL Urine Color YELLOW Urine Clarity CLOUDY Urine pH 6.0 5-9 Urine Specific [place] 1.015 L 1.016-1.022 Urine Protein 1+ H NEGATIVE Urine Glucose (UA) NEGATIVE NEGATIVE Urine Ketones NEGATIVE NEGATIVE Urine Nitrite NEGATIVE NEGATIVE Urine Bilirubin NEGATIVE NEGATIVE Urine Urobilinogen 0.2 < = 1.0 MG/DL Urine Leukocyte Esterase 2+ H NEGATIVE Urine RBC (Auto) 3+ H NEGATIVE Urine RBC 10-25 H /HPF Urine WBC >100 H /HPF Urine Squamous Epithelial Cells 2-5 /HPF Urine Crystals NONE /LPF Urine Bacteria MODERATE H /HPF Urine Casts PRESENT /LPF Urine Granular Casts 5-10 H /LPF Urine Coarse Granular Casts RARE H /LPF Urine Mucus SMALL H /LPF Urine Culture Indicated YES Lactic Acid Level 1.09 0.50-2.00 MMOL/L My Orders Orders - OG SHOOK MD Comprehensive Metabolic Panel (11/06/20 13:06) Ua Culture If Indicated (11/06/20 13:06) Ed Iv/Invasive Line Start (11/06/20 13:06) Cbc With Automated Diff (11/06/20 13:06) Manual Differential (11/06/20 13:00) Ekg Tracing (11/06/20 13:16) Troponin I Fs (11/06/20 13:16) Urine Culture (11/06/20 13:20) Ns Iv 1000 Ml (Sodium Chloride 0.9%) (11/06/20 14:00) Aspirin Chewable Tablet (Baby Aspirin Ch (11/06/20 14:00) Magnesium (11/06/20 13:58) Probnp Fs (11/06/20 13:58) Protime With Inr (11/06/20 13:58) Partial Thromboplastin Time (11/06/20 13:58) Monitor-Rhythm Ecg Trace Only (11/06/20 13:58) Chest 1 View Ap/Pa Only (11/06/20 14:08) Blood Culture (11/06/20 14:37) Lactic Acid Analyzer (11/06/20 14:37) Ceftriaxone For Iv Use (Rocephin For I (11/06/20 14:37) Ns Iv 1000 Ml (Sodium Chloride 0.9%) (11/06/20 16:00) Oliveira Cath (11/06/20 15:47) Medications Given in ED Current Medications Medications Dose Ordered Sig/Triny Route Start Time Stop Time Status Last Admin Dose Admin Aspirin 324 mg ONCE ONCE PO 11/06/20 14:00 11/06/20 14:01 DC 11/06/20 14:11 324 MG Vital Signs/I&O 11/06/20 12:53 Temp 37.4 Pulse 65 Resp 20 B/P (MAP) 116/51 (72) Pulse Ox 98 O2 Delivery Room Air Capillary Refill : Progress Note #1: Progress Note check general labs, urine and with having general weakness and with his age and no specific reason for his weakness will add on ECG and troponin. Progress Note #2: Progress Note CBC shows normal WBC count of 8.7 and mild anemia of 11.4. He has low platelets of 75. Chemistry came back with elevated BUN 73 and Cr 5.1. He had no acute ST elevation on ECG and no prior tracing for comparison. The Troponin came back elevated to 1.55. UA shows findings for UTI. With these finding will need to get pt admitted for nephrology and cardiology. Add on Aspirin 324 mg. Check CXR, Magnesium, coags. From speaking with the pt and his spouse, he has not been told before about having kidney failure and supposedly had normal labs with his pcp about a month ago in [place]. He follows with [facility] specialists for kidney and cardiology with him having a thoracic aorta aneurysm. They would like to go to [facility] for specialty care. Progress Note #3: Time: 14:20 Progress Note d/w Dr. Rod at [facility] transfer center and he accepted pt for transfer and will find a bed for him in the [facility] system. Will call back when a bed is available. In the meantime a catheter will be started to monitor urine output and continue with fluids for his renal failure for hydration. Start Rocephin and obtain blood cultures and lactic acid to rule out sepsis. ECG Initial ECG Impression Date: Nov 06, 2020 Initial ECG Impression Time: 13:25 Initial ECG Rate: 63 Initial ECG Rhythm: Normal Sinus Initial ECG Comparisson: No Previous ECG Available Comment Normal sinus rhythm with heart rate 63 bpm. HI interval of 137 ms. QT interval 439 ms with a QTc interval of 450 ms. There is no acute ST elevation. He does have some nonspecific lateral T wave flattening. There is no prior tracing available for comparison. Diagnostic Imaging Diagonstic Imaging: Xray Plain Films/CT/US/NM/MRI: chest Comments [facility] [place], [place] NAME: LANRE ALMANZA [facility] REC#: [id number] PT STATUS: REG ER : 1945 PHYSICIAN: OG SHOOK MD ADMIT DATE: 11/06/20/ER FS Draft Date of Exam:11/06/20 CHEST 1 VIEW AP/PA ONLY Indication: Chest pain, generalized weakness. Comparison: None. Discussion: Single portable upright view of the chest was obtained. Low lung volumes. Patchy infiltrates are noted within the left lung base, atelectasis and/or pneumonia. No pleural fluid or pneumothorax. Normal heart size. No osseous abnormality. Impression: 1. Patchy infiltrates within the left lung base, concerning for pneumonia. Dictated on workstation # [id number] Dict: 11/06/20 1424 Trans: 11/06/20 1426 [facility] [id number] Interpreted by: RENNY US MD Electronically signed by: Critical Care Note Critical Care Total Time (minutes) 60 minutes Progress 60 minutes of critical care time was spent in direct care of the patient. Time spent excluding separately billable procedures. Time spent obtaining history from patient and medical records, ordering test and reviewing results, ordering interventions and reviewing response, discussion with patient and family, discussion with consultants, documentation in the chart. Patient was at risk for imminent failure of neurologic, cardiac, renal, circulatory systems, and required my direct supervision and care to manage his visit and care. Departure Impression Primary Impression: Non-STEMI (non-ST elevated myocardial infarction) Additional Impression: Acute renal failure Qualified Codes: N17.9 - Acute kidney failure, unspecified Disposition: XFER SHT-TRM HOSP Condition: Critical Transfer Transfer Reason: Exceeds level of care (Needs Nephrology for acute on chronic renal failure, also continuity of care for pt) Time Spoke to Accepting Phy: 14:20 Transfer Progress Notes Discussed with Dr. Rod at [facility] transfer center and will work on bed placement in [facility]. Will call back when bed available. Transfer Facility: [facility] Method of Transfer: EMS Departure-Patient Inst. Referrals: LATASHA WOODALL (PCP) Primary Care Physician [facility]/ (Family) Primary Care Physician OG SHOOK MD Nov 06, 2020 14:02
[2020-11-06 14:07] LABS: LYMPHOCYTES % (MANUAL) 1 %; MONOCYTES % (MANUAL) 9 %; NEUTROPHILS % (MANUAL) 90 %; TOXIC GRANULATION/VACUOLAZATIO 3+
--- NOTE | 2020-11-06 14:27 | Diagnostic Imaging Report ---
Indication: Chest pain, generalized weakness. Comparison: None. Discussion: Single portable upright view of the chest was obtained. Low lung volumes. Patchy infiltrates are noted within the left lung base, atelectasis and/or pneumonia. No pleural fluid or pneumothorax. Normal heart size. No osseous abnormality. Impression: 1. Patchy infiltrates within the left lung base, concerning for pneumonia. Dictated by: Dictated on workstation # [id number]
[2020-11-06] MEDS ORDERED: cefTRIAXone FOR IV USE 1,000 MG in WATER (STERILE) FOR INJECTION 10 ML IV STA (14:37)
[2020-11-06 16:20] VITALS: BP 118/51
== END 2020-11-06 16:20 | disposition short-term general hospital (02) ==
LOC: EDUNIT# 12:51 → ER FS 12:52
DX: I21.4 Non-ST elevation (NSTEMI) myocardial infarction (principal); N17.9 Acute kidney failure, unspecified; I10 Essential (primary) hypertension; Z86.73 Personal history of transient ischemic attack (TIA), and cerebral infarction without residual deficits
CPT/HCPCS: 36415; 51702; 71045; 80053; 81000; 83605; 83735; 83880; 84484; 85007; 85027; 85610; 85730; 87040; 87077; 87088; 93005; 93041